=== PATIENT | male | born 1960 | race Caucasian/White ===

== ENCOUNTER 2016-08-14 06:23 | Day surgery (SDC) | payer OTHER ==
[~2016-08-14] VITALS: Ht 167.6 cm; Wt 96.3 kg
[2016-08-14 06:59] VITALS: Ht 167.6 cm; Wt 96.3 kg
[2016-08-14] MEDS ORDERED: LOSA100T7 PO (07:06)
[2016-08-14] MEDS ORDERED: OMEP40CA6 PO (07:06)
[2016-08-14 07:08] VITALS: BP 121/86; PULSE 71; RESP 18
[2016-08-14] MEDS ORDERED: PROPOFOL 20 ML ONE (07:31)
[2016-08-14 08:43] VITALS: BP 141/89; PULSE 70; RESP 24
--- NOTE | 2016-08-14 09:22 | GILP ---
DATE OF ADMISSION: 08/14/2016 DATE OF CONSULTATION: NAME OF PROCEDURE: 1. Esophagogastroduodenoscopy and biopsy. 2. Colonoscopy. SURGEON: Apollo Varela MD PREOPERATIVE DIAGNOSES: 1. Abdominal pain. 2. Screening colonoscopy. POSTOPERATIVE DIAGNOSES: 1. Hiatal hernia. 2. Gastroesophageal reflux disease. HISTORY OF PRESENT ILLNESS: 1. Residual food in the stomach, making the exam inadequate and incomplete. 2. Gastric mucosal biopsies were taken for Helicobacter pylori test. 3. Colonoscopy all the way to the cecum. 4. Poor prep making the exam suboptimal. 5. Internal hemorrhoids. INDICATION FOR THE PROCEDURE: Mr. Kemar Loco is a 56-year-old male patient who was scheduled fo r upper endoscopy and colonoscopy. The patient was complaining of upper abdominal pain, not respond ing to therapy. He needed screening colonoscopy. The procedures and possible complications are well explained to the patient, he understood and conse nted to the procedures. Under the influence of anesthesia, the gastroscope was carefully introduced into the esophagus and under direct vision, it was advanced to the stomach. FINDINGS: The patient had hiatal hernia and gastroesophageal reflux disease. STOMACH: The patient had residual food in the stomach, making the exam inadequate and incomplete. G astric mucosal biopsies were taken for Helicobacter pylori test. The colonoscope was carefully introduced in the rectum and under direct vision, it was advanced all the way to the cecum. FINDINGS: The patient had poor prep making the exam suboptimal. The patient was noted to have inte rnal hemorrhoids. He tolerated the procedures very well and there was no complication from the procedures. At the end of the procedures, he was awake with stable vital signs and he was discharged home to the care of h is family. IMPRESSION: 1. Hiatal hernia. 2. Gastroesophageal reflux disease. 3. Residual from the stomach, making the exam incomplete and inadequate. 4. Colonoscopy all the way to the cecum. 5. Poor prep making the exam suboptimal. 6. Internal hemorrhoids. PLAN: 1. Continue omeprazole. 2. Add Zantac 300 mg p.o. at bedtime. 3. Await H. pylori test report. 4. The patient will need better preparation and repeat endoscopy and colonoscopy in 1 year. Dictated By: APOLLO MURPHY/FANTASMA Conf#: [id number] DID#: [id number]
== END 2016-08-14 08:31 | disposition home or self-care (01) ==
LOC: GIL 06:23
PROVIDERS: ATTEND Internal Medicine Gastroenterology
DX: Z12.11 Encounter for screening for malignant neoplasm of colon (principal); K44.9 Diaphragmatic hernia without obstruction or gangrene; K21.9 Gastro-esophageal reflux disease without esophagitis; K64.8 Other hemorrhoids; I10 Essential (primary) hypertension; E66.9 Obesity, unspecified; Z68.34 Body mass index [BMI] 34.0-34.9, adult
CPT/HCPCS: 43239; 45378; 87081; Z7610

== ENCOUNTER 2016-08-23 09:56 | Day surgery (SDC) | payer OTHER ==
[2016-08-22 15:46] VITALS: BMI 34.1
[~2016-08-23] VITALS: Ht 167.6 cm; Wt 92.6 kg
[2016-08-23] VITALS (9 sets, daily range): BP systolic 102–132; BP diastolic 67–82; PULSE 66–92; RESP 11–20; Ht 167.6 cm; Wt 92.6 kg
[~2016-08-23 09:56] MED LIST: LOSA100T7 PO; OMEP40CA6 PO; SEVOFLURANE 15 MIN ONE
[2016-08-23] MEDS ORDERED: SILD20TA PO (10:34)
[2016-08-23] MEDS ORDERED: GABA300C16 PO (10:34)
[2016-08-23] MEDS ORDERED: RANI150T5 PO (10:35)
[2016-08-23] MEDS ORDERED: CARV6.2579 PO (10:35)
[2016-08-23] MEDS ORDERED: TRAM-40 PO (10:35)
[2016-08-23] MEDS ORDERED: HYD25 PO (10:37)
[2016-08-23] MEDS ORDERED: LOSA100T7 PO (10:37)
[2016-08-23] MEDS ORDERED: ATOR20TA38 PO (10:37)
[2016-08-23] MEDS ORDERED: OMEP40CA6 PO (10:38)
[2016-08-23] MEDS ORDERED: AMLO-147 PO (10:38)
[2016-08-23] MEDS ORDERED: ALBU18HF INHALATION (10:39)
[2016-08-23] MEDS ORDERED: FLUT9.9S NASAL (10:39)
[2016-08-23] MEDS ORDERED: ROCURONIUM 50 MG INJ ONE (15:23)
[2016-08-23] MEDS ORDERED: LIDOCAINE 2% (SDV) 5 ML INJ ONE (15:23)
[2016-08-23] MEDS ORDERED: PROPOFOL 20 ML ONE (15:23)
[2016-08-23] MEDS ORDERED: FENTAnyl 50 MCG/ML VIAL ONE (15:25)
[2016-08-23] MEDS ORDERED: ROPIVACAINE 0.5 % 30 ML VIAL ONE (15:26)
[2016-08-23] MEDS ORDERED: DEXAMETHASONE 4 MG/ML 1 ML INJ ONE ×2 (15:26→16:11)
[2016-08-23] MEDS ORDERED: ACETAMINOPHEN 1000MG/100ML IV 100 ML ONE (15:26)
[2016-08-23] MEDS ORDERED: EPINEPHrine 1 MG/ML 30 ML INJ ONE (15:26)
--- NOTE | 2016-08-23 15:40 | HPN ---
Date/Time of Note Date/Time of Note DATE: 08/23/16 TIME: 15:40 Interval H&P Admission Note Pt. seen H&P reviewed: No system changes GLORIA KRISHNAN MD August 23, 2016 15:40
[2016-08-23] MEDS ORDERED: ONDANSETRON 4 MG INJ IV PRN ×2 (16:00)
[2016-08-23] MEDS ORDERED: FENTAnyl 50 MCG/ML VIAL IV PRN ×3 (16:00)
[2016-08-23] MEDS ORDERED: LABETALOL HCL 20MG INJ IV PRN (16:00)
[2016-08-23] MEDS ORDERED: HYDROmorphONE (0.2 MG/ML) 10ML SYG IV PRN ×2 (16:00)
[2016-08-23] MEDS ORDERED: METOCLOPRAMIDE 10 MG INJ IV PRN (16:00)
[2016-08-23] MEDS ORDERED: MEPERIDINE 25 MG INJ IV PRN (16:00)
[2016-08-23] MEDS ORDERED: hydrALAzine 20 MG INJ IV PRN (16:00)
[2016-08-23] MEDS ORDERED: DIPHENHYDRAMINE 50 MG INJ IV PRN (16:00)
[2016-08-23] MEDS ORDERED: EPHEDrine SULFATE 50 MG/5 ML SYG IV PRN (16:00)
[2016-08-23] MEDS ORDERED: EPINEPHrine 1 MG/ML 30 ML INJ IRR ONE (16:02)
[2016-08-23] MEDS ORDERED: CEFAZOLIN 1 GM INJ ONE (16:13)
[2016-08-23] MEDS ORDERED: NEOSTIGMINE 3 MG/3 ML SYRINGE ONE (16:14)
[2016-08-23] MEDS ORDERED: GLYCOPYRROLATE 0.4 MG INJ ONE (16:14)
--- NOTE | 2016-08-23 16:35 | OPPN ---
Date/Time of Note Date/Time of Note DATE: 08/23/16 TIME: 16:35 Post-Anesthesia Notes Post-Anesthesia Note Last documented vital signs Vital Signs Date Time Temp Pulse Resp B/P Pulse Ox O2 Delivery O2 Flow Rate FiO2 08/23/16 11:05 98.0 88 16 102/69 96 Room Air Activity: WNL Respiratory function: WNL Cardiovascular function: WNL Mental status: Baseline Pain reasonably controlled: Yes Hydration appropriate: Yes Nausea/Vomiting absent: Yes WILFRED ROBIN August 23, 2016 16:35
[2016-08-23] MEDS: HYDROmorphONE (0.2 MG/ML) 10ML SYG IV PRN ×2 (16:47→16:56)
[2016-08-23] MEDS ORDERED: HYDROCODONE/APAP (10/325) TAB GTB PRN (17:00)
== END 2016-08-23 18:10 | disposition home or self-care (01) ==
LOC: SDS 09:56
PROVIDERS: ATTEND Specialist
DX: M23.222 Derangement of posterior horn of medial meniscus due to old tear or injury, left knee (principal); I10 Essential (primary) hypertension; E66.9 Obesity, unspecified; Z68.33 Body mass index [BMI] 33.0-33.9, adult
CPT/HCPCS: 29881; 82962; J0131; J0171; J0690; J1170; J2175; J2405; J2795; J3010; Z7512; Z7610; J1100; J2710

== ENCOUNTER 2017-02-03 05:49 | Day surgery (SDC) | payer OTHER ==
[2017-02-03] VITALS (15 sets, daily range): BP systolic 133–178; BP diastolic 79–111; PULSE 60–74; RESP 10–20; Ht 167.6 cm; Wt 94.1 kg
[~2017-02-03] VITALS: Ht 167.6 cm; Wt 94.1 kg
[~2017-02-03 05:49] MED LIST changes: +ALBU18HF INHALATION; +AMLO-147 PO; +ATOR20TA38 PO; +CARV6.2579 PO; +FLUT9.9S NASAL; +GABA300C16 PO; +HYDR25TA6 PO; +RANI150T5 PO; -SEVOFLURANE 15 MIN ONE; +SILD20TA PO; +TRAM-40 PO
--- NOTE | 2017-02-03 05:57 | HPN ---
Date/Time of Note Date/Time of Note DATE: 02/03/17 TIME: 05:57 Interval H&P Admission Note Pt. seen H&P reviewed: No system changes ED CORONA MD Feb 03, 2017 05:57
[2017-02-03] MEDS ORDERED: morphine 2 MG INJ IV PRN (06:00)
[2017-02-03] MEDS ORDERED: oxyCODONE 5 MG TAB PO ONE (06:00)
[2017-02-03] MEDS ORDERED: NEOMYC/POLYMYX/BACIT 30 GM OINT ONE (06:55)
[2017-02-03] MEDS ORDERED: BUPIVACAINE 0.5% (SDV) 30 ML INJ ONE (06:55)
[2017-02-03] MEDS ORDERED: ROPIVACAINE 0.5 % 30 ML VIAL ONE ×2 (06:55→07:16)
[2017-02-03] MEDS ORDERED: METF500T4 PO (07:04)
[2017-02-03] MEDS ORDERED: HEPARIN 1000 UNITS/ML 10 ML INJ ONE (07:15)
[2017-02-03] MEDS ORDERED: SODIUM CL BACTERIOSTATIC 30 ML INJ ONE (07:15)
[2017-02-03] MEDS ORDERED: THROMBIN 5000 UNIT VIAL ONE (07:15)
[2017-02-03] MEDS ORDERED: MIDAZOLAM 1 MG/ML 2 ML INJ ONE (07:16)
[2017-02-03] MEDS ORDERED: FENTAnyl 50 MCG/ML VIAL ONE (07:16)
[2017-02-03] MEDS ORDERED: ROPIVACAINE 0.5 % 30 ML VIAL INJ ONE (08:10)
[2017-02-03] MEDS ORDERED: CEFAZOLIN 1 GM INJ ONE (08:12)
[2017-02-03] MEDS ORDERED: ROCURONIUM 50 MG INJ ONE (08:12)
[2017-02-03] MEDS ORDERED: SUGAMMADEX SODIUM 200 MG/2 ML VIAL IV ONE (08:12)
[2017-02-03] MEDS ORDERED: SUCCINYLCHOLINE CHLORIDE 100 MG/5 ML SYG IV ONE (08:12)
[2017-02-03] MEDS ORDERED: LIDOCAINE 2% (SDV) 5 ML INJ ONE (08:12)
[2017-02-03] MEDS ORDERED: PROPOFOL 20 ML ONE (08:12)
[2017-02-03] MEDS ORDERED: LIDOCAINE 1% (MPF) 30 ML INJ ONE (08:14)
[2017-02-03] MEDS ORDERED: MEPERIDINE 25 MG INJ IV PRN (08:30)
[2017-02-03] MEDS ORDERED: ONDANSETRON 4 MG INJ IV PRN (08:30)
[2017-02-03] MEDS ORDERED: METOCLOPRAMIDE 10 MG INJ IV PRN (08:30)
[2017-02-03] MEDS ORDERED: FENTAnyl 50 MCG/ML VIAL IV PRN ×2 (08:30)
[2017-02-03] MEDS ORDERED: DIPHENHYDRAMINE 50 MG INJ IV PRN (08:30)
--- NOTE | 2017-02-03 10:02 | OPR ---
Date/Time of Note Date/Time of Note DATE: 02/03/17 TIME: 09:59 Operative Report Procedure Date: Feb 03, 2017 Preoperative Diagnosis Left knee patellofemoral chondromalacia Left knee medial meniscal tear Left knee medial femoral condyle insufficiency fracture Postoperative Diagnosis Left knee patellofemoral chondromalacia Left knee medial meniscal tear Left knee medial femoral condyle insufficiency fracture Operation/Procedure Performed Left knee arthroscopy with chondroplasty Left knee partial medial meniscectomy Left knee sub-chondroplasty to the medial femoral condyle with bone marrow aspirate concentrate Aspiration of bone marrow concentrate from the left iliac crest Surgeon Ed Corona MD Cotton Program Technician None Anesthesia Type: general, other (local and fascia iliacus block) Anesthesiologist: SUE ARIAS Tourniquet Time: 53 min at 250 mm Hg Estimated Blood Loss: minimal Transfusion none Specimen none Grafts/Implants 2.7 CC of Balwinder [employer] Subchondroplasty Calcium phosphate Tubes/Drains None Complications none Pt Condition Post Procedure: stable Disposition: PACU Indications Patient is a 56-year-old gentleman with a long history of left knee pain that has been refractory to conservative management as well as previously done knee arthroscopy. MRI demonstrated a subchondral bone marrow edema lesion and insufficiency fracture in the medial femoral condyle. There is also evidence of recurrence of medial meniscus tear. We discussed the treatment options both surgical and nonsurgical and I felt that given that he had failed appropriate treatment he was a good surgical candidate first chondroplasty. We discussed the details of the procedure as well as the risks, which included but not limited to infection, bleeding, injury to blood vessels and nerves and ligaments and tendons as well as continued pain stiffness and need for future surgery. Given that he demonstrated an understanding of the diagnosis and was in agreement with the treatment plan as well as the understanding of the consent was made with a director security management. He wanted to proceed and all questions were answered. Consent was signed. Procedure Description The correct operative site was noted and marked in the preoperative holding area. The patient was then brought back into the operative theater, placed supine on the operative table. Left knee was examined under anesthesia. Range of motion was 0-120. There is no varus or valgus or anterior or posterior instability. There is crepitus noticed at the patellofemoral joint. Tourniquet was then placed on the operative extremity thigh non-sterilely. Patient was then given preoperative antibiotics and then prepped and draped in normal sterile fashion. A timeout was taken and all parties in the room agreed it was the correct patient, correct extremity and correct procedure. Initially attention was turned to the left iliac crest where a Jamshidi needle was placed into the left iliac crest approximately 4 cm from the anterior superior iliac spine. 60 cc of bone marrow aspirate was removed from the iliac crests and then sent off to be centrifuged to a bone marrow aspirate concentrate. This wound was irrigated and then closed with 4-0 Monocryl and covered with Steri-Strips 4 x 4's and a Tegaderm. Attention was then turned to the left knee and 10 cc of 1% Lidocaine without epi was injected into the anteriorlateral and anteriormedial portal sites prior to incision. Standard anterior lateral portal was created and the knee joint was entered with a blunt tipped trocar, followed by 30 arthroscope. Inflow was achieved with a pump and the pressure maintained at approximately 50 mmHg. A routine arthroscopic surgery was performed. Suprapatella pouch was unremarkable. The undersurface of the patella showed advanced grade 2 chondromalacia The medial and lateral gutters were visualized. There were no loose bodies seen. There is an inflamed hypertrophic plica noted in the anterior and superior medial aspect of the knee. The popliteus hiatus was entered and was normal. Lateral compartment was entered and grade 1 chondromalacia was seen on the lateral tibial plateau and femoral condyle. Scope was then brought into the intercondylar notch and an anteromedial portal was made. Shaver was brought into the knee and small amount of fat pad and scar tissue was initially gently debrided. The lateral meniscus was identified and probed and found to be intact The anterior cruciate ligament was intact and probed. The knee was brought into a valgus position and the medial compartment was entered. The articular surface of the medial femoral condyle revealed diffuse grade 2/3 chondromalacia with a soft area of cartilage lesion where the was little a subchondral insufficience fracture. Anterior and medial body of the medial meniscus revealed that it already been trimmed back to a firm stable rim approximately 2 mm. The posterior horn showed a partial tear that was a radial tear in nature along the posterior aspect of the posterior horn.. There was a degenerative posterior horn medial meniscus tear that was visualized and debrided gently with a motorized shaver and basket forceps, the posterior horn demonstrated a degenerative tear pattern. The motorized shaver and basket biters were used to smooth the remaining meniscal rim, with care to maintain the peripheral meniscal rim. A probe was introduced and this was carefully probed and was found to be stable. Chondroplasty was then carried out along the weightbearing aspect of the medial femoral condyle, medial tibial plateau, taking care to remove only loose articular cartilage debris and preserve functional articular cartilage. At this point under fluoroscopic guidance the subchondralplasty cannula was inserted into the medial femoral condyle and the location corresponding to the subchondral bone insufficiency fracture and edema on MRI. This was confirmed in both AP and lateral knee x-rays. And fluoroscopic AP and lateral. Approximately 2.7 mL of the calcium phosphate was then injected into the distal femur. The initial 1.5 mL was injected followed by 2 cc of bone marrow aspirate concentrate followed by another 1.2 mL of the calcium phosphate. The cannula was left in place for approximately 8 minutes until there was hardening of the calcium phosphate. The cannula was then removed and the arthroscope was then inserted back in the knee and there is no evidence of any extravasation. Fluoroscopy was then used and confirmed no extravasation as well as that there was a blush at the injection site. The calcium phosphate will be best served as the internal fixation for the insufficiency fracture in the distal femur. The medial and lateral compartment was reentered and the loose chondral debris was debrided with motorized shaver. Attention was then directed back to the patella femoral joint and a chondroplasty was carried out along the weightbearing aspect of the trochlea and undersurface of the patella to again remove loose debris and maintain functional active articular cartilage. The knee was then irrigated with additional 2 L of lactated Ringers solution. Excess fluid was then drained. Range of motion was then attempted showing 0- 125 degrees of motion The portal and injection sites were closed with 4-0 Monocryl and Steri-Strips and dressed with Xeroform and triple antibiotic ointment. The knee was then injected with 20 cc of 0.5% plain ropivacaine. A dry sterile dressing was then applied followed by a bulky soft bandage in a Steven wrapping. the knee was then placed into a knee At the completion of the surgery patient had palpable pulses, soft arms and brisk cap refill. The patient tolerated the procedure well and was taken to the PACU without any complications. All sponge and needle counts were correct. Patient will begin pain medicine and 48 hours of antibiotics as well as aspirin 81 mg for the duration of 4 weeks postoperatively The patient will remain nonweightbearing for the next 6 weeks to the left lower extremity ED CORONA MD Feb 03, 2017 10:02
[2017-02-03] MEDS: FENTAnyl 50 MCG/ML VIAL IV PRN ×2 (10:11→10:19)
--- NOTE | 2017-02-03 15:22 | RADRPT ---
PROCEDURE: Intraoperative imaging of the left knee with fluoroscopy. CLINICAL INDICATION: Left knee pain. Intraoperative. TECHNIQUE: 10 images of the left main were obtained in the operating room with an image intensifie r. No radiologist was in attendance. Fluoroscopy time is 54 seconds. COMPARISON: No prior study is available for comparison. FINDINGS: Images demonstrate surgical instruments overlying the left knee. IMPRESSION: 1. Intraoperative imaging of the left knee. RPTAT: QQ .Jan Unger MD, MD Date Time Electronically viewed and signed by .Jan Unger MD, on 02/03/2017 15:22 .R/
[2017-02-04 17:41] LABS: PTH CALCIUM 8.9 mg/dL (8.6-10.3)
== END 2017-02-03 13:07 | disposition home or self-care (01) ==
LOC: SDS 05:49
PROVIDERS: ATTEND Orthopaedic Surgery
DX: S83.242A Other tear of medial meniscus, current injury, left knee, initial encounter (principal); M94.262 Chondromalacia, left knee; E66.01 Morbid (severe) obesity due to excess calories; X58.XXXA Exposure to other specified factors, initial encounter; Y93.89 Activity, other specified; Y92.89 Other specified places as the place of occurrence of the external cause; Y99.8 Other external cause status; E11.9 Type 2 diabetes mellitus without complications
CPT/HCPCS: 29881; 38220; 73562; 82306; 82962; 83970; 84436; 84439; 84443; 85610; J0690; J1644; J2175; J2250; J2795; J3010; Z7512; Z7610